=== PATIENT | male | born 1965 | race Caucasian/White ===

== ENCOUNTER 2019-04-04 05:47 | Emergency (ER) | payer BC ==
--- NOTE | 2019-04-04 06:18 | ED ---
Upper Extremity Pain - HPI Summary HPI Summary: Patient is a 53-year-old male who presents emergency department for ongoing left hand pain times several months. Patient states he months ago he fell and landed onto his left hand. Patient states pain got better and then got worse again with a recent injury. Patient notes mild swelling to the area. Denies redness, fever or wounds. No past medical history. Symptoms are mild in severity. Using left hip makes symptoms worse. Rest makes symptoms better. - History of Current Complaint Chief Complaint: EDExtremityUpper Stated Complaint: LEFT HAND INJURY PER PT Time Seen by Provider: 04/04/19 05:57 Hx Obtained From: Patient - Allergies/Home Medications Allergies/Adverse Reactions: Allergies Allergy/AdvReac Type Severity Reaction Status Date / Time No Known Allergies Allergy Verified 04/04/19 05:54 Home Medications: Home Medications NK [No Home Medications Reported] 04/04/19 [History Confirmed 04/04/19] PMH/Surg Hx/FS Hx/Imm Hx Previously Healthy: Yes Infectious Disease History: No Infectious Disease History: Denies: Traveled Outside the [place] in Last 30 Days - Social History Lives: With Family Alcohol Use: Rare Substance Use Type: Reports: None Smoking Status (MU): Never Smoked Tobacco Review of Systems Constitutional: Negative Negative: Fever Positive: Other - Pain to left hand Skin: Negative Negative: Rash, Bruising Neurological: Negative Negative: Weakness, Paresthesia, Numbness All Other Systems Reviewed And Are Negative: Yes Physical Exam Vital Signs On Initial Exam: Initial Vitals Temp Pulse Resp BP Pulse Ox 98.2 F 85 18 167/109 100 04/04/19 05:48 04/04/19 05:48 04/04/19 05:48 04/04/19 05:48 04/04/19 05:48 Vital Signs Reviewed: Yes Appearance: Positive: Well-Appearing - Pt. sitting on bed in NAD. Skin: Positive: Warm, Dry Head/Face: Positive: Normal Head/Face Inspection Eyes: Positive: Normal, EOMI Neck: Positive: Supple Musculoskeletal: Positive: Other - Mild edema and mild pain over the 3rd MCP joint of left hand. No overlying erythema, wounds, or increased warmth. Full ROM of digits and wrist. Neurological: Positive: Normal, CN Intact II-III Psychiatric: Positive: Affect/Mood Appropriate Diagnostics - Vital Signs Vital Signs Temp Pulse Resp BP Pulse Ox 04/04/19 05:48 98.2 F 85 18 167/109 100 - Laboratory Lab Statement: Any lab studies that have been ordered have been reviewed, and results considered in the medical decision making process. Course/Dx - Course Course Of Treatment: Patient with ongoing left hand pain after multiple injuries over the last few months. No signs of infection on exam. X-ray negative for acute findings, reading per myself. Donte wrap placed for comfort. Will have patient follow up in orthopedic clinic for further evaluation. Advised anti-inflammatories as directed for pain and swelling. Patient understands and agrees with plan. - Diagnoses Differential Diagnosis/HQI/PQRI: Positive: Arthritis, Bursitis, Contusion, Fracture (Closed), Strain, Sprain Provider Diagnoses: Hand pain Discharge - Sign-Out/Discharge Documenting (check all that apply): Patient Departure Patient Received Moderate/Deep Sedation with Procedure: No - Discharge Plan Condition: Good Disposition: HOME Patient Education Materials: Hand Sprain (ED) Referrals: [facility] [Outside] Tariq Suh MD [Medical Doctor] - Additional Instructions: Follow up in the orthopedics clinic for further evaluation is pain persist Ice and elevate intermittently Tylenol or Motrin for pain as directed Return to ER if symptoms change or worsen - Billing Disposition and Condition Condition: GOOD Disposition: Home
[2019-04-04 07:24] VITALS: BP 149/99
== END 2019-04-04 07:23 | disposition home or self-care (01) ==
LOC: ED 05:47
DX: M79.642 Pain in left hand (principal)
CPT/HCPCS: 99282